=== PATIENT | female | born 1980 | race Caucasian/White ===

== ENCOUNTER 2017-04-11 10:43 | Emergency (ER) ==
[2017-04-11 10:49] VITALS: TEMP 99.9; BMI 25.8
[2017-04-11] MEDS ORDERED: SODIUM CHLORIDE 1,000 ML IV STA ×2 (11:01→13:20)
[2017-04-11] MEDS ORDERED: SOLU-MEDROL 125 MG IVP STA (11:07)
[2017-04-11] MEDS ORDERED: ROCEPHIN 2 GM in SODIUM CHLORIDE 100 ML IV STA (11:07)
[2017-04-11] MEDS ORDERED: ZOFRAN 4 MG/2 ML IVP STA (11:08)
[2017-04-11] MEDS ORDERED: MORPHINE 4 MG/ML VIAL IVP STA (11:11)
[2017-04-11] MEDS ORDERED: ROCEPHIN ONE (11:16)
[2017-04-11 11:17] LABS: BASOPHILS % (AUTO) 0.2 % (0.0-3.0); HEMATOCRIT 39.8 % (37.0-47.0); HEMOGLOBIN 13.5 g/dl (12.0-16.0); IMMATURE GRANULOCYTE % (AUTO) 0.3 % (0.0-5.0); LYMPHOCYTES # (AUTO) 0.5 K/uL (0.60-3.4); LYMPHOCYTES % (AUTO) 5.7 (10.0-50.0); MEAN CORPUSCULAR HEMOGLOBIN 31.2 pg (27.0-31.0); MEAN CORPUSCULAR HGB CONC 33.9 (31.8-35.4); MEAN CORPUSCULAR VOLUME 91.9 fl (81.0-99.0); MONOCYTES # (AUTO) 0.6 K/uL (0.4-2.0); MONOCYTES % (AUTO) 6.3 (0-10); NEUTROPHILS # (AUTO) 7.9 K/ul (2.0-6.9); NEUTROPHILS % (AUTO) 87.5; PLATELET COUNT 175 10^3/uL (140-440); RED BLOOD COUNT 4.33 10^6/ul (4.20-5.40); WHITE BLOOD COUNT 9.08 K/ul (4.6-10.2)
--- NOTE | 2017-04-11 11:19 | ED.PDOC ---
General ED Provider: Dr. KHURRAM PULLIAM Chief Complaint: Fever Stated Complaint: Pateint is a 36 year old female who comes to the ER with fever starting last night T max 103 with back pain, neck stiffness and headach. states previously had similar symtoms with Urosepsis. Time Seen by Physician: 11:11 Mode of Arrival: Walk-In Information Source: Patient Exam Limitations: No limitations Nursing and Triage Documentation Reviewed and Agree: Yes Review of Systems - Review Of Systems Constitutional: Reports: Fever Eyes: Reports: No symptoms Ears, Nose, Mouth, Throat: Reports: No symptoms Respiratory: Reports: No symptoms Cardiac: Reports: No symptoms Musculoskeletal: Reports: Back pain, Neck pain Neurological: Reports: Headache All Other Systems: Reviewed and Negative Past Medical History - Past Medical History Previously Healthy: Yes Endocrine: Reports: None Cardiovascular: Reports: None Respiratory: Reports: None Hematological: Reports: None Gastrointestinal: Reports: None Genitourinary: Reports: UTI Neuro/Psych: Reports: None Musculoskeletal: Reports: None Cancer: Reports: None Last Menstrual Period: 04/11/17 - Surgical History General Surgical History: Reports: None - Family History Family History: Reports: None - Social History Smoking Status: Current every day smoker Hx Substance Use: No Alcohol Screening: Occasionally - Immunizations Tetanus Shot up to Date: Yes Physical Exam - Physical Exam Appearance: Ill-appearing Ill-appearing: Severe Pain Distress: Severe Eyes: YOLA, EOMI, Conjunctiva clear ENT: Nose normal, Oropharynx normal Neck: Nonsupple (stiffness) Respiratory: Airway patent, Breath sounds clear, Breath sounds equal, Respirations nonlabored Cardiovascular: Pulses normal, Tachycardia GI/: Soft, Nontender Musculoskeletal: Normal strength, ROM intact, No edema, No calf tenderness Skin: Warm, Dry, Normal color Neurological: Sensation intact, Motor intact, Reflexes intact, Alert, Oriented Psychiatric: Anxious Interpretation - Radiology Interpretation Radiology Interpretation By: Radiologist Radiology Results: Negative Exam Interpreted: CT Scan Radiology Interpretation By: Radiologist Exam Interpreted: CXR - [place] Rate: Normal Rhythm: Sinus Ectopy: None Re-Evaluation - Re-Evaluation Time of Re-Evaluation: 16:14 Status: Improved Vital Signs Stable: Yes (BP 99/67, P 80) Physician Notification - Case Discussed Physician Notified: Dr. Calderon Time of Notification: 16:40 (accepted to [facility]) Critical Care Note - Critical Care Note Total Time (mins): 45 Course - Course Hematology/Chemistry: 04/11/17 11:10 04/11/17 11:10 Orders, Labs, Meds: Lab Review 04/11/17 04/11/17 04/11/17 11:10 11:10 11:10 WBC 9.08 RBC 4.33 Hgb 13.5 Hct 39.8 MCV 91.9 MCH 31.2 H MCHC 33.9 RDW Coeff of Gianni 12.4 Plt Count 175 Immature Gran % (Auto) 0.3 Neut % (Auto) 87.5 Lymph % (Auto) 5.7 L [place] % (Auto) 6.3 Eos % (Auto) 0.0 Baso % (Auto) 0.2 Immature Gran # (Auto) 0.0 Neut # 7.9 H Lymph # 0.5 L [place] # 0.6 Eos # 0.0 Baso # 0.0 Sodium 133 L Potassium 3.5 Chloride 103 Carbon Dioxide 20 L Anion Gap 13.5 BUN 6 L Creatinine 0.67 Estimated GFR (MDRD) 99.00 BUN/Creatinine Ratio 8.95 Glucose 115 H Lactic Acid Calcium 9.5 Total Bilirubin 0.28 AST 13 L ALT 20 Alkaline Phosphatase 83 Total Protein 7.1 Albumin 3.2 L Globulin 3.9 Albumin/Globulin Ratio 0.82 Procalcitonin 0.17 Urine Color Urine Clarity Urine pH Ur Specific [place] Urine Protein Urine Glucose (UA) Urine Ketones Urine Blood Urine Nitrite Urine Bilirubin Urine Urobilinogen Ur Leukocyte Esterase Urine Microscopic RBC Urine Microscopic WBC Ur Squamous Epith Cells Urine Bacteria Influenza A (Rapid) Influenza B (Rapid) 04/11/17 04/11/17 04/11/17 11:10 12:00 12:05 WBC RBC Hgb Hct MCV MCH MCHC RDW Coeff of Gianni Plt Count Immature Gran % (Auto) Neut % (Auto) Lymph % (Auto) [place] % (Auto) Eos % (Auto) Baso % (Auto) Immature Gran # (Auto) Neut # Lymph # [place] # Eos # Baso # Sodium Potassium Chloride Carbon Dioxide Anion Gap BUN Creatinine Estimated GFR (MDRD) BUN/Creatinine Ratio Glucose Lactic Acid 13.5 Calcium Total Bilirubin AST ALT Alkaline Phosphatase Total Protein Albumin Globulin Albumin/Globulin Ratio Procalcitonin Urine Color Yellow Urine Clarity Slightly Urine pH 6.0 Ur Specific [place] <=1.005 Urine Protein 1+ Urine Glucose (UA) Negative Urine Ketones Negative Urine Blood 3+ Urine Nitrite Positive Urine Bilirubin Negative Urine Urobilinogen 0.2 Ur Leukocyte Esterase 3+ Urine Microscopic RBC 2-5 Urine Microscopic WBC 50-100 Ur Squamous Epith Cells 0-2 Urine Bacteria 1+ Influenza A (Rapid) Negative Influenza B (Rapid) Negative Orders Category Date Time Status IV ACCESS ONCE CARE 04/11/17 11:00 Active ED APPLY O2 .ONCE EMERGENCY 04/11/17 11:00 Active ED CONTROL ROOM AGENT APPLIED .ONCE EMERGENCY 04/11/17 11:00 Active ED IV/MEDIPORT/POWERPORT .ONCE EMERGENCY 04/11/17 11:35 Active ED VITAL SIGNS Q1HR EMERGENCY 04/11/17 11:00 Active BLOOD CULTURE Stat LAB 04/11/17 11:53 Received CBC W/ AUTO DIFF Stat LAB 04/11/17 11:10 Completed COMPREHENSIVE METABOLIC PANEL Stat LAB 04/11/17 11:10 Completed GLUCOSE,CSF Stat LAB 04/11/17 11:08 Ordered LACTIC ACID Stat LAB 04/11/17 11:10 Completed MOLECULAR GROUP A STREP Stat LAB 04/11/17 12:05 Results PROCALCITONIN Stat LAB 04/11/17 11:10 Completed RAPID FLU A/B Stat LAB 04/11/17 12:05 Completed STREP SCREEN Stat LAB 04/11/17 12:05 Results TOTAL PROTEIN,CSF Stat LAB 04/11/17 11:08 Ordered URINALYSIS C & S IF INDICATED Stat LAB 04/11/17 12:00 Completed URINE CULTURE Stat LAB 04/11/17 12:00 Received 0.9 % Sodium Chloride [Saline Flush] MEDS 04/11/17 11:35 Active 1 syr IVF PRN PRN Ceftriaxone Sodium [Rocephin] MEDS 04/11/17 11:16 Discontinued 2 gm .ROUTE .STK-MED ONE Ceftriaxone Sodium [Rocephin] 2 gm MEDS 04/11/17 11:07 Discontinued 0.9 % Sodium Chloride [Sodium Chloride] 100 ml IV ONCE Fentanyl Amp [Sublimaze] MEDS 04/11/17 11:26 Discontinued 50 mcg IVP ONCE STA Ketorolac Tromethamine [Toradol] MEDS 04/11/17 16:17 Discontinued 30 mg IVP ONCE STA Lidocaine HCl/Pf [Lidocaine HCl 1% Sdv] MEDS 04/11/17 13:37 Discontinued 5 ml .ROUTE .STK-MED ONE Methylprednisolone Sod Succ/Pf [Solu-Medrol 125 mg] MEDS 04/11/17 11:07 Discontinued 125 mg IVP ONCE STA Midazolam HCl Inj [Versed] MEDS 04/11/17 13:47 Discontinued 5 mg .ROUTE .STK-MED ONE Morphine Sulfate [Morphine 4 mg/ml Vial] MEDS 04/11/17 11:11 Discontinued 4 mg IVP ONCE STA Ondansetron HCl/Pf [Zofran 4 mg/2 ml] MEDS 04/11/17 11:08 Discontinued 4 mg IVP ONCE STA Sodium Chloride 0.9% [Sodium Chloride] 1,000 ml MEDS 04/11/17 11:01 Discontinued IV BOLUS Sodium Chloride 0.9% [Sodium Chloride] 1,000 ml MEDS 04/11/17 13:20 Discontinued IV BOLUS CHEST, 2 VIEWS PA & LAT Stat RADS 04/11/17 11:[address] HEAD W/O CONTRAST Stat RADS 04/11/17 11:10 Completed Medications Generic Name Dose Route Start Last Admin Trade Name Freq PRN Reason Stop Dose Admin Sodium Chloride 1 syr 04/11/17 11:35 04/11/17 11:51 Saline Flush IVF 1 syr PRN PRN Administration To flush IV Discontinued Medications Generic Name Dose Route Start Last Admin Trade Name Freq PRN Reason Stop Dose Admin Fentanyl Citrate 50 mcg 04/11/17 11:26 04/11/17 14:10 Sublimaze IVP 04/11/17 11:27 Not Given ONCE STA Sodium Chloride 1,000 mls @ 1,000 mls/hr 04/11/17 11:01 04/11/17 11:47 Sodium Chloride IV 04/11/17 12:00 1,000 mls/hr BOLUS STA Administration Ceftriaxone Sodium 2 gm/ 100 mls @ 100 mls/hr 04/11/17 11:07 04/11/17 11:48 Sodium Chloride IV 04/11/17 12:06 100 mls/hr ONCE STA Administration Sodium Chloride 1,000 mls @ 1,000 mls/hr 04/11/17 13:20 04/11/17 13:21 Sodium Chloride IV 04/11/17 14:19 1,000 mls/hr BOLUS STA Administration Ketorolac Tromethamine 30 mg 04/11/17 16:17 04/11/17 17:08 Toradol IVP 04/11/17 16:18 30 mg ONCE STA Administration Methylprednisolone Sodium Succinate 125 mg 04/11/17 11:07 04/11/17 11:30 Solu-Medrol 125 Mg IVP 04/11/17 11:08 125 mg ONCE STA Administration Morphine Sulfate 4 mg 04/11/17 11:11 04/11/17 11:50 Morphine 4 Mg/Ml Vial IVP 04/11/17 11:12 4 mg ONCE STA Administration Ondansetron HCl 4 mg 04/11/17 11:08 04/11/17 11:50 Zofran 4 Mg/2 Ml IVP 04/11/17 11:09 4 mg ONCE STA Administration Vital Signs: Temp Pulse Resp BP Pulse Ox 04/11/17 10:45 99.9 F H 156 H 24 108/79 95 Departure - Departure Time of Disposition: 16:44 Disposition: TSF SHORT-TRM HOSP Discharge Problem: Urinary tract infection Qualifiers: Urinary tract infection type: acute cystitis Hematuria presence: without hematuria Qualified Code(s): N30.00 - Acute cystitis without hematuria Instructions: Urinary Tract Infection in Women (ED) Condition: Stable Pt referred to PMD for follow-up: No Allergies/Adverse Reactions: Allergies No Known Allergies Allergy (Unverified 04/11/17 10:49) Home Medications: Ambulatory Orders 1 [No Reported Medications] 04/11/17
[2017-04-11] MEDS ORDERED: SUBLIMAZE IVP STA (11:26)
[2017-04-11] MEDS ORDERED: FENTANYL 50 MCG/HR TD SCH (11:30)
[2017-04-11 11:36] LABS: ALBUMIN 3.2 g/dL (3.4-5.0); ALBUMIN/GLOBULIN RATIO 0.82; ANION GAP 13.5; BILIRUBIN,TOTAL 0.28 mg/dL (0.00-1.20); BUN/CREATININE RATIO 8.95; CALCIUM 9.5 mg/dL (8.2-10.2); CREATININE 0.67 mg/dL (0.60-1.30); POTASSIUM 3.5 mmol/L (3.5-5.10); TOTAL PROTEIN 7.1 g/dL (6.4-8.2)
--- NOTE | 2017-04-11 11:52 | DI ---
EXAM: PA and lateral views of the chest HISTORY: Fever COMPARISON: Chest Xray from 08/09/2014 FINDINGS: There is no change. Lungs are clear with no lobar consolidation, failure, large effusion or significant atelectasis. Cardiac and mediastinal silhouettes show no acute abnormality. No acute o sseous or soft tissue abnormalities. IMPRESSION: No active disease.
--- NOTE | 2017-04-11 11:53 | CT ---
EXAM: CT head without contrast HISTORY: Headache fever and neck pain COMPARISON: None. TECHNIQUE: Helical axial CT of the head was performed without contrast. Coronal and sagittal reconstr uctions were performed. FINDINGS: There is no acute intracranial abnormality. There is no hemorrhage, mass, midline shift, abnormal ex tra-axial fluid collection, hydrocephalus or evolving ischemia. The celeste-white matter junction is wel l maintained. Brain parenchyma, ventricles and sulci are normal. There are no acute calvarial lesions. Visualized orbits and globes are unremarkable. The mastoid ai r cells demonstrate no significant soft tissue opacification. The visualized paranasal sinuses show n o air-fluid levels. IMPRESSION: Negative head CT.
[2017-04-11 12:08] LABS: BILIRUBIN,URINE Negative (NEGATIVE); KETONES,URINE Negative (NEGATIVE); LEUKOCYTE ESTERASE ,URINE 3+ (NEGATIVE); NITRITE,URINE Positive (NEGATIVE); PROTEIN,URINE 1+ (NEGATIVE); URINE, BLOOD 3+ (NEGATIVE)
[2017-04-11 12:09] LABS: ADD URINE MICROSCOPIC YES
[2017-04-11 12:10] LABS: BACTERIA,URINE 1+ (NOT PRESENT)
[2017-04-11 12:30] LABS: FLU INTERNAL QC INTERNAL QC VALID; RAPID FLU A NEGATIVE (NEGATIVE); RAPID FLU B NEGATIVE (NEGATIVE)
[2017-04-11] MEDS ORDERED: LIDOCAINE HCL 1% SDV ONE (13:37)
[2017-04-11] MEDS ORDERED: VERSED ONE (13:47)
--- NOTE | 2017-04-11 14:00 | ED.PDOC ---
Procedures - Lumbar Puncture Position of Patient: Lateral Decubitis Local Anesthetic Used: Yes (2CC 1% lidocaine) Gauge of Spinal needle: 22 Lumbar Space Used for Insertion: L4/5 Number of Attempts: 2 (pevious attempts per ER physician) Spinal Fluid Obtained: Yes (clear 4 quad return without paresthesia) Fluid Description: Present: Clear Opening Pressure (mm/H2O): NA Kit not available Conscious Sedation - Pre-op Assessment Weight: 165 lb Surgical History: UTERUS - Medical History Past Medical History: None Other History: NO
[2017-04-11] MEDS ORDERED: VERSED IVP STA (14:10)
--- NOTE | 2017-04-11 14:10 | ED.PDOC ---
Conscious Sedation - Pre-op Assessment Weight: 165 lb NPO Since: ice chips 1330 Procedure: lumbar tap Surgical History: UTERUS Previous Anesthesia Difficulty: No Level Of Consciousness: Awake, Other (drowsy had 4mg Morphine pre op) - Medical History Past Medical History: None Other History: NO - Physical Exam Heart Rate/Rhythm: Regular Rhythm Lung Sounds: Clear HEENT Within Normal Limits: Yes Test Negative: No (S/P hysterectomy) Anesthesia Review of Patient History: Yes - Anesthesia Care Plan Anes. Plan Discussed with Patient/Family Permit Signed: Yes Risk and Benefits Discussed with Patient and Family: Yes Patient and Family Agree and Understand: Yes All Patient's and Family's Questions Answered: Yes - Procedure Start Time of Procedure: 01:45 End Time of Procedure: 02:00 - Post-Op Anesthesia Follow-up Anesthesia Complications: No (pt discharged within 24 hour without after anes problems)
[2017-04-11] MEDS ORDERED: TORADOL IVP STA (16:17)
[2017-04-11 16:23] VITALS: BP 108/79
== END 2017-04-11 18:55 | disposition short-term general hospital (02) ==
LOC: ED 10:43
DX: N30.00 Acute cystitis without hematuria (principal); M43.6 Torticollis; R51 Headache; R50.9 Fever, unspecified; F17.210 Nicotine dependence, cigarettes, uncomplicated; Z87.440 Personal history of urinary (tract) infections
CPT/HCPCS: 36415; 80053; 81001; 82945; 83605; 84145; 84157; 85025; 87040; 87086; 87186; 87651; 87804; 87880; 96361; 96365; 96375; 99285

== ENCOUNTER 2017-04-15 12:57 | Emergency (ER) ==
--- NOTE | 2017-04-15 13:08 | ED.PDOC ---
General ED Provider: Dr. CHANDANA MUIR JR Chief Complaint: Headache Stated Complaint: pt had lumbar puncture done here on thursday and was transferred to [facility]. was discharged on thursday with antibiotics. has had headache since. otc meds not helping[ End ]96.5 91 18 97% 132/93 10/10 occipital pain and nausea. ......................................... per up to date defiinitive threapy is q blood patch;oral gabapentin [43], intravenous hydrocortisone [44], oral theophylline [45], help. .......................................... : 04/11/17. Dr. KHURRAM PULLIAM. Stated Complaint: Pateint is a 36 year old female who comes to the ER with fever starting last night T max 103 with back pain, neck stiffness and headach. states previously had similar symtoms with Urosepsis. Urine Color Yellow. Urine Clarity Slightly. Urine pH 6.0. Ur Specific [place] <=1.005. Urine Protein 1+. Urine Glucose (UA) Negative. Urine Ketones Negative. Urine Blood 3+. Urine Nitrite Positive. Urine Bilirubin Negative. Urine Urobilinogen 0.2. Ur Leukocyte Esterase 3+. Urine Microscopic RBC 2-5. Urine Microscopic WBC 50-100. Ur Squamous Epith Cells 0-2. Fentanyl Citrate 50 mcg 04/11/17 11: 26 04/11/17 14:10. Sublimaze IVP. Ceftriaxone Sodium 2 gm/. Sodium Chloride 1 ,000 mls @ 1,000 mls/hr. Ketorolac Tromethamine 30 mg Solu-Medrol 125 Mg IVP Morphine 4 Mg/Ml Vial IVP Zofran 4 Mg/2 Ml. 04/11/17 10:45 99.9 F H 156 H 24 108/79 95. Disposition: TSF SHORT-TRM HOSP. : acute cystitis Hematuria presence: without hematuria Qualified Code(s): N30.00 - Acute cystitis without hematuria Time Seen by Physician: 13:36 Mode of Arrival: Walk-In Information Source: Patient Exam Limitations: No limitations Nursing and Triage Documentation Reviewed and Agree: No Review of Systems - Review Of Systems Constitutional: Reports: No symptoms Eyes: Reports: No symptoms Ears, Nose, Mouth, Throat: Reports: No symptoms Respiratory: Reports: No symptoms Cardiac: Reports: No symptoms GI: Reports: Nausea : Reports: No symptoms (specifically denies) Musculoskeletal: Reports: No symptoms Skin: Reports: No symptoms Neurological: Reports: Headache (occipital) Endocrine: Reports: No symptoms Hematologic/Lymphatic: Reports: No symptoms All Other Systems: Other Past Medical History - Past Medical History Previously Healthy: Yes Endocrine: Reports: None Cardiovascular: Reports: None Respiratory: Reports: None Hematological: Reports: None Gastrointestinal: Reports: None Genitourinary: Reports: UTI Neuro/Psych: Reports: None Musculoskeletal: Reports: None Cancer: Reports: None Other Pertinent Past Medical History: leep, prolapse uterus,right wrist, tubes and one ovary removed - Surgical History General Surgical History: Reports: None, Tubal ligation (tubes and one ovary removed), Orthopedic (right wrist). Denies: Hysterectomy (leep, prolapse uterus repair ) - Family History Family History: Reports: None - Social History Smoking Status: Current every day smoker Hx Substance Use: No Alcohol Screening: Occasionally Physical Exam - Physical Exam Appearance: Ill-appearing, Thin Pain Distress: Moderate Eyes: YOLA, EOMI, Conjunctiva clear (fundi normal) ENT: Ears normal, Nose normal, Oropharynx normal Neck: Supple Respiratory: Airway patent, Breath sounds clear, Breath sounds equal, Respirations nonlabored Cardiovascular: RRR, Pulses normal, No rub, No murmur GI/: Soft, Nontender, No masses, Bowel sounds normal, No Organomegaly Musculoskeletal: Normal strength, ROM intact, No edema, No calf tenderness ( note rectangular 3x2cm ecchymoses lumbar area) Skin: Warm, Dry, Normal color (note lesion) Neurological: Sensation intact, Motor intact, Reflexes intact, Cranial nerves intact, Alert, Oriented Psychiatric: Mood appropriate Re-Evaluation - Re-Evaluation Time of Re-Evaluation: 14:08 Status: Improved (discussed avoiding NSAIDS until no headache for 5 days) Critical Care Note - Critical Care Note Total Time (mins): 5 Course - Course Orders, Labs, Meds: Orders Category Date Time Status Meperidine HCl/Pf [Demerol 50 mg/ml Vial] MEDS 04/15/17 13:35 Discontinued 50 mg IM ONCE STA Ondansetron HCl/Pf [Zofran 4 mg/2 ml] MEDS 04/15/17 13:34 Discontinued 4 mg IM ONCE STA Medications Discontinued Medications Generic Name Dose Route Start Last Admin Trade Name Deanq PRN Reason Stop Dose Admin Meperidine HCl 50 mg 04/15/17 13:35 04/15/17 13:42 Demerol 50 Mg/Ml Vial IM 04/15/17 13:36 50 mg ONCE STA Administration Ondansetron HCl 4 mg 04/15/17 13:34 04/15/17 13:42 Zofran 4 Mg/2 Ml IM 04/15/17 13:35 4 mg ONCE STA Administration Vital Signs: Temp Pulse Resp BP Pulse Ox 04/15/17 13:03 96.5 F L 91 H 18 132/93 H 97 Departure - Departure Time of Disposition: 14:10 Disposition: HOME SELF-CARE Discharge Problem: Headache, Post lumbar puncture headache Instructions: Lumbar Puncture (ED), General Headache (ED) Condition: Good Pt referred to PMD for follow-up: Yes Additional Instructions: may follow up with [facility] recheck one week, follow up sooner if headache not resolved recommended treatment for post spinal puncture headache is a blood patch avoid NSAIDS for five days after headache resolved may use Tylenol but do not exceed bottle doses NOTE [place] and many other medications contain Tylenol follow up one week PMD recheck urine discuss prophylactic therapy and monitoring may follow up with Urology Prescriptions: Hydrocodone Bit/Acetaminophen [[place] 5-325] 1 - 2 tab PO Q6HR PRN #12 tablet PRN Reason: pain Orphenadrine Citrate [Norflex] 100 mg PO Q12H PRN #30 tablet.er PRN Reason: headache Allergies/Adverse Reactions: Allergies No Known Allergies Allergy (Verified 04/15/17 13:09) Home Medications: Ambulatory Orders Hydrocodone Bit/Acetaminophen [[place] 5-325] 1 - 2 tab PO Q6HR PRN #12 tablet 10/25 Orphenadrine Citrate [Norflex] 100 mg PO Q12H PRN #30 tablet.er 04/15/17
[2017-04-15 13:09] VITALS: BP 132/93; TEMP 96.5; BMI 29.7
[2017-04-15] MEDS ORDERED: ZOFRAN 4 MG/2 ML IM STA (13:34)
[2017-04-15] MEDS ORDERED: DEMEROL 50 MG/ML VIAL IM STA (13:35)
== END 2017-04-15 14:32 | disposition home or self-care (01) ==
LOC: ED 12:57
DX: R51 Headache (principal); G97.1 Other reaction to spinal and lumbar puncture; F17.210 Nicotine dependence, cigarettes, uncomplicated
CPT/HCPCS: 96372; 99282

== ENCOUNTER 2018-01-07 21:35 | Emergency (ER) ==
[2018-01-07 21:49] VITALS: BMI 32.8
[2018-01-07] MEDS ORDERED: DEMEROL 100 MG/ML SYRINGE IM STA (22:01)
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
[2018-01-07] MEDS ORDERED: PHENERGAN 25 MG/ML VIAL IM STA (22:06)
[2018-01-07] MEDS ORDERED: DILAUDID 2 MG/ML SDV IM STA (22:17)
[2018-01-07] MEDS ORDERED: LACTATED RINGERS 1,000 ML IV STA (22:26)
[2018-01-07 23:16] VITALS: BP 108/69; TEMP 97.6
== END 2018-01-07 23:59 | disposition home or self-care (01) ==
LOC: ED 21:35
DX: K81.1 Chronic cholecystitis (principal); F17.210 Nicotine dependence, cigarettes, uncomplicated
CPT/HCPCS: 36415; 80053; 82150; 83605; 83690; 84145; 85025; 96360; 99283

== ENCOUNTER 2018-05-20 10:01 | Outpatient (CLI) ==
--- NOTE | 2018-05-20 11:17 | DI ---
Exam: Single view of the abdomen. Comparison: CT abdomen pelvis performed 08/21/2014. Reason for exam: Unspecified abdominal pain. FINDINGS: The bowel gas pattern is nonspecific and nonobstructive. Air is seen to the level rectosi gmoid. Impression: Nonspecific, nonobstructive bowel gas pattern
== END 2018-05-20 10:02 | disposition home or self-care (01) ==
LOC: RAD 10:01
PROVIDERS: ATTEND Nurse Practitioner Family
DX: R10.9 Unspecified abdominal pain (principal); R31.9 Hematuria, unspecified

== ENCOUNTER 2018-08-30 08:02 | Emergency (ER) ==
[2018-08-30 08:07] VITALS: BP 143/94; TEMP 97.5; BMI 32.6
[2018-08-30] MEDS ORDERED: SODIUM CHLORIDE 1,000 ML IV STA (08:29)
[2018-08-30] MEDS ORDERED: MORPHINE 4 MG/ML SYRINGE IVP STA (08:45)
[2018-08-30] MEDS ORDERED: ZOFRAN 4 MG/2 ML IVP STA (08:45)
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
[2018-08-30] MEDS ORDERED: TORADOL IVP STA (10:31)
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
== END 2018-08-30 11:35 | disposition home or self-care (01) ==
LOC: ED 08:02
DX: M25.561 Pain in right knee (principal); S43.422A Sprain of left rotator cuff capsule, initial encounter; M54.2 Cervicalgia; M54.9 Dorsalgia, unspecified; R51 Headache; V86.55XA Driver of 3- or 4- wheeled all-terrain vehicle (ATV) injured in nontraffic accident, initial encounter; F17.210 Nicotine dependence, cigarettes, uncomplicated
CPT/HCPCS: 36415; 80053; 81001; 84703; 85025; 85610; 85730; 96361; 96374; 96375; 99283